=== PATIENT | male | born 1990 | race Caucasian/White ===

== ENCOUNTER 2020-05-11 18:26 | Emergency (ER) | payer OTHER, SELFPAY ==
[2020-05-11 18:29] VITALS: BP 142/95; PULSE 85; RESP 20; TEMP 36.7; O2SAT 98
--- NOTE | 2020-05-11 18:35 | W.ED.GENAD ---
Discharge Plan Disposition Patient Disposition: HOME Condition: Good Discharge Details Chief Complaint: Cellulitis Clinical Impression: Cellulitis of forearm, right Primary Care Provider: None,None ED Provider: Natali Hylton Home Meds and New Rx's Prescriptions: New cephalexin 500 mg capsule 500 mg PO QID Qty: 24 RF: 0 Continued ibuprofen [Advil Liqui-Gel] 200 MG capsule 600 mg PO TID PRNRF: 0 loratadine [Claritin] 10 mg Tablet 10 mg PO DAILY PRNRF: 0 Discharge Instructions Instructions: Cellulitis (ED) Additional Instructions: Elevate right extremity above your heart as much as possible throughout the day. Take antibiotics as directed even if you are feeling better. Return if symptoms worsened after 24 hours on antibiotics if you have fever unable to take antibiotics or for any concerns Your tetanus has been updated Medical Decision Making Patient presents with right forearm swelling pain and erythema most consistent with a cellulitis. He has had no fevers. The erythema is mild. His symptoms just started yesterday. Hemodynamically he is stable. Seems reasonable to treat him with Keflex. We will dispense 4 doses and provide a prescription for 7 days. His tetanus has been updated. He was advised to follow-up if symptoms not improving within 24 hours or if he develops fever or unable to take antibiotics or concerns. HPI General Mode of arrival: ambulatory. Date/Time Provider Initiated Documentation: 05/11/20 18:35. Limitations to Documentation: no limitations. Information obtained by: patient. HPI Narrative: Developed right forearm swelling pain and redness yesterday. Works as a combination welder apprentice. Does have a couple superficial scrapes. He has had no fevers he is eating and drinking bowels and bladder functioning thinks his last tetanus was 6 years ago Related Data Home Medications Medication Instructions Recorded Confirmed ibuprofen [Advil Liqui-Gel] 600 mg PO TID PRN 12/03/17 05/11/20 cephalexin 500 mg PO QID #24 cap 05/11/20 loratadine [Claritin] 10 mg PO DAILY PRN 05/11/20 05/11/20 Previous Rx's Medication Instructions Recorded cephalexin 500 mg PO QID #24 cap 05/11/20 Allergies Allergy/AdvReac Type Severity Reaction Status Date / Time No Known Allergies Allergy Unverified 05/11/20 18:32 General Stated Complaint: Cellulitis MARLENY: 4 Review of Systems Constitutional Constitutional: Denies fever(s) Integumentary/Breasts Skin/Breast: Reports rash, Reports skin pain and Reports other (swelling,entire forearm to elbow, good ROM to wrist elbow and shoulder) [facility] Medical History (Updated 05/11/20 @ 18:56 by Natali Hylton NP) Seasonal allergies (Acute) Surgical History (Updated 05/11/20 @ 18:33 by Mariam Baez) H/O oral surgery (Acute) Social History Smoking/Tobacco Use Status: Never Alcohol Intake: current Alcohol Intake frequency: holidays/special occasions only Drug use: Occasionally Substance use type: marijuana Do you feel safe at home: Yes Do you feel safe in your relationship?: Yes Exam Const General: cooperative, healthy appearing, comfortable and no acute distress Nutritional Appearance: average body habitus Orientation: alert, awake and oriented x3 HENMT Head: normal to inspection, normocephalic and atraumatic Mouth: oral mucosae normal Resp Effort & Inspection: normal respiratory effort Cardio Rate: regular rate (strong good radial pulse) Rhythm: regular rhythm Skin General skin exam: erythema Lesions: other (small scratches scabbed, superficial) Rashes: rashes noted (right forearm) Extrem Right upper extremity: full ROM, normal capillary refill and edema Course Vital Signs Vital signs: Vital Signs Temperature 36.7 C 05/11/20 18:29 Pulse 85 05/11/20 18:29 Respiratory Rate 20 05/11/20 18:29 Blood Pressure 142/95 H 05/11/20 18:29 Pulse Oximetry 98 05/11/20 18:29 Temperature 36.7 C 05/11/20 18:29 Temperature Source Skin 05/11/20 18:29 Pulse 85 05/11/20 18:29 Respiratory Rate 20 05/11/20 18:29 Respiratory Effort Non-Labored 05/11/20 18:33 Blood Pressure 142/95 H 05/11/20 18:29 Blood Pressure Position Sitting 05/11/20 18:29 Pulse Oximetry 98 05/11/20 18:29 Oxygen Delivery Method Room Air 05/11/20 18:29 Oxygen Flow Rate 0 05/11/20 18:29 Pain Level 3 05/11/20 18:29
[2020-05-11] MEDS: Cephalexin 500 MG CAP, 4 CAPS/BTL PO (19:11)
== END 2020-05-11 19:15 | disposition home or self-care (01) ==
PROVIDERS: Emergency Provider Nurse Practitioner Acute Care
DX: L03.113 Cellulitis of right upper limb (principal); S50.811A Abrasion of right forearm, initial encounter; X58.XXXA Exposure to other specified factors, initial encounter
CPT/HCPCS: 90472; 99284; 99283

== ENCOUNTER 2025-07-13 17:08 | Emergency (ER) | payer OTHER, SELFPAY ==
[2025-07-13 17:14] VITALS: BP 160/99; PULSE 83; RESP 20; TEMP 36.8; O2SAT 94
--- NOTE | 2025-07-13 17:35 | W.ED.GENAD ---
Discharge Plan Disposition Patient Disposition: Home Condition: Stable Discharge Details Clinical Impression: Laceration of finger of left hand Primary Care Provider: None,None ED Provider: Gisel Snow Home Meds and New Rx's Prescriptions: No Action ibuprofen [Advil Liqui-Gel] 200 MG capsule 600 mg PO TID PRN loratadine [Claritin] 10 mg Tablet 10 mg PO DAILY PRN Discharge Instructions Instructions: Laceration Repair With Stitches ED Additional Instructions: You were seen in the emergency department today for evaluation of a laceration. In our department a full physical examination performed, the wound was thoroughly cleaned, there was no evidence of damage to the tendons, nerves, or blood vessels. You had stitches placed, 8, which need to be removed in 7 to 10 days. This can be done any urgent care, ER, or primary care clinic. Please keep that area clean and dry, it is fine to wash your hands with soap and water, just pat dry afterwards and reapply antibiotic ointment and a dressing. You can wear the finger splint as needed to remind yourself not to bend the finger to prevent displacement of the stitches. You can use Tylenol and ibuprofen as needed for management of pain. I have placed a referral for you to establish with a primary care provider. Thank you for allowing us to be part of your care. HPI General Mode of arrival: ambulatory. Date/Time Provider Initiated Documentation: 07/13/25 17:14. Limitations to Documentation: no limitations. Information obtained by: patient and old records reviewed. HPI Narrative: This is a 35-year-old male patient presenting for evaluation of a laceration to his left pinky sustained on the metal part of a ratchet strap. The patient was working at home when the ratchet strap opened and struck the palmar aspect of his left pinky. He did not injure any other part of his body, was able to fully range the pinky, and presented immediately to care. He did not take any medications prior to arrival for pain. Last tetanus shot was just over 5 years ago. That he has preserved sensation distal to the injury, was in his normal state of health prior to arrival. Related Data Home Medications ?Medication ?Instructions ?Recorded ?Confirmed ibuprofen 200 mg capsule (Advil 600 mg PO TID PRN 12/03/17 07/13/25 Liqui-Gel) loratadine 10 mg tablet (Claritin) 10 mg PO DAILY PRN 05/11/20 07/13/25 Allergies Allergy/AdvReac Type Severity Reaction Status Date / Time No Known Allergies Allergy Unverified 07/13/25 17:18 General Stated Complaint: Laceration MARLENY: 4 Exam Narrative Exam Narrative: Gen: Awake and alert, in no apparent distress HEENT: Non-icteric sclera Neck: Supple Lungs: No apparent respiratory distress, normal respiratory effort. CV: Appears well perfused Abdomen: Non-distended MSK: Moves 4 extremities without apparent limitation in ROM, including full resisted flexion of the affected left pinky. Brisk capillary refill and preserved sensation distal to the injury. Skin: Visualized skin without rashes, cyanosis. The left pinky on the palmar aspect has an approximately 2.5 cm jagged laceration roughly in the shape of the nail, hemostatic. Adipose tissue is visible, the extensor tendon was fully explored after anesthetic was instilled, and is found to be intact. Neuro: Normal Gait, no obvious focal deficits or facial asymmetry. Speaks in full, clear sentences. Psych: Appropriate for situation. Course Vital Signs Vital signs: Vital Signs Temperature 36.8 C 07/13/25 17:14 Pulse 83 07/13/25 17:14 Respiratory Rate 20 07/13/25 17:14 Blood Pressure 160/99 H 07/13/25 17:14 Pulse Oximetry 94 07/13/25 17:14 Temperature 36.8 C 07/13/25 17:14 Pulse 83 07/13/25 17:14 Respiratory Rate 20 07/13/25 17:14 Blood Pressure 160/99 H 07/13/25 17:14 Blood Pressure Position Sitting 07/13/25 17:14 Pulse Oximetry 94 07/13/25 17:14 Oxygen Delivery Method Room Air 07/13/25 17:14 Oxygen Flow Rate 0 07/13/25 17:14 Procedure Laceration Laceration 1: Date of Procedure: 07/13/25 Time of procedure: 17:45 Provider that performed the procedure: Gisel Snow Patient Consented: Verbally Site: hand Side (If applicable): left Description: irregular Depth: simple, single layer Local anesthetic: Lidocaine 2% Amount of anesthesia used (mL): 3 Pre-repair:: wound explored, irrigated extensively and deep structures intact Skin layer closed with: other (prolene) Suture size: 4-0 Number of sutures:: 8 Technique: simple, interrupted Complications: None Procedure Description/Note: The wound was anesthetized, and thoroughly cleansed with antiseptic scrub and normal saline pressure irrigation. A finger tourniquet was used to prevent excessive hemorrhage during repair. The wound was thoroughly explored with no evidence of tendon disruption. The edges of the wound were approximated using simple interrupted sutures as noted above, with good approximation appreciated at the end of the repair. Medical Decision Making This is a 35-year-old male patient presenting for evaluation of a finger laceration. My differential includes but is not limited to laceration, no evidence for deep structure injury such as tendon injury, neurovascular derangement, or fracture. I have a low concern for foreign body given the mechanism. The patient's tetanus shot was boosted, and the laceration was repaired as noted above with 8 simple interrupted sutures. The patient tolerated this procedure well, and had good approximation afterwards. The patient was counseled on wound care and the wound was dressed using topical antibiotic ointment and bandages, and he was provided with a metal splint to prevent excessive range of motion and disruption of the sutures. Sutures will need to be removed in 7 to 10 days. At this time, the patient has had a full medical evaluation and is safe for discharge to home. They are hemodynamically stable, ambulatory, and tolerating PO. They are understanding of the follow-up plan and return precautions. They left our facility without incident. Gisel Snow MD [facility], 1928–1983 All Active Problems (Updated 07/13/25 @ 18:18 by Gisel Snow MD) Laceration of finger of left hand (Acute) Medical History (Updated 07/13/25 @ 18:18 by Gisel Snow MD) Seasonal allergies Surgical History (Updated 05/11/20 @ 18:33 by Mariam Baez) H/O oral surgery Social History Smoking/Tobacco Use Status: Never Smoking risk assessment performed?: Yes Alcohol Intake: current Alcohol Intake frequency: holidays/special occasions only Drug use: Occasionally Substance use type: marijuana Do you feel safe at home: Yes Do you feel safe in your relationship?: Yes PAWSS Have you Been Recently Intoxicated or Drunk Within the Last 30 days?: No Have you Ever Experienced Previous Episodes of Alcohol Withdrawal?: No Have you ever Experienced Withdrawal Seizures?: No Have you ever Experienced Delirium Tremens(DT)s?: No Have you ever undergone Alcohol Rehabilitation Treatment (i.e, inpt ot outpatient treatment programs)?: No Have you ever Experienced Blackouts?: No Have you ever Combined Alcohol with other Downers within the last 90 days?: No Have you ever Combined Alcohol with any other Substance of Abuse during the last 90 days?: No Positive Blood Alcohol level on Presentation? [PCS.BAL]: No Evidence of Increased Autonomic Activity (i.e. HR>120, tremor, sweating, agitation, nausea)?: No Result: 0
[2025-07-13] MEDS: Diph,Pertuss(Acell),Tet Vac/Pf 0.5 ML SYR IM (17:50)
[2025-07-13] MEDS: Lidocaine 2% Multi-Dose 20 ML VIAL IJ (17:51)
== END 2025-07-13 18:25 | disposition home or self-care (01) ==
LOC: ER 18:28
PROVIDERS: Emergency Provider Emergency Medicine
DX: S61.217A Laceration without foreign body of left little finger without damage to nail, initial encounter (principal); Z23 Encounter for immunization; W20.8XXA Other cause of strike by thrown, projected or falling object, initial encounter; Y93.89 Activity, other specified; Y92.018 Other place in single-family (private) house as the place of occurrence of the external cause
CPT/HCPCS: 12001; 90471; 90715; 99283; J2003